=== PATIENT | male | born 1940 | race Two or more races ===

== ENCOUNTER 2021-07-22 18:54 | Emergency (ER) | payer MEDICARE, BC ==
--- NOTE | 2021-07-22 19:26 | EDM.PDOC ---
ED HPI GENERAL MEDICAL PROBLEM - General Chief Complaint: Upper Extremity Injury/Pain Stated Complaint: RR SHOULDER PAIN, FALL Time Seen by Provider: 07/22/21 19:14 Source of Information: Reports: Patient History Limitations: Reports: No Limitations - History of Present Illness INITIAL COMMENTS - FREE TEXT/NARRATIVE: HISTORY AND PHYSICAL: History of present illness: The patient is an 81-year-old male who presents to the emergency department for complaints of right shoulder pain after getting out of his pickup truck and grabbing a dog's leash the dog pulled him to the ground and yanked on his shoulder with the leash. The patient was able to get up with assistance from a neighbor. Patient denies any fever, chills, headache, change in vision, syncope or near syncope. Denies any chest pain, back pain, shortness of breath or cough. Denies any abdominal pain, nausea, vomiting, diarrhea, constipation or dysuria. Has not noted any blood in urine or stool. Patient has been eating and drinking appropriately. Review of systems: As per history of present illness and below otherwise all systems reviewed and negative. Past medical history: As per history of present illness and as reviewed below otherwise noncontributory. Surgical history: As per history of present illness and as reviewed below otherwise noncontributory. Social history: See social history for further information Family history: As per history of present illness and as reviewed below otherwise noncontributory. Physical exam: General: Well developed and well nourished. Alert and orientated x 3. Nontoxic in appearance and in no acute distress. Vital signs are stable and have been reviewed by me. Nursing notes were reviewed. HEENT: Atraumatic, normocephalic, pupils equal and reactive bilaterally, negative for conjunctival pallor or scleral icterus, mucous membranes moist, TMs normal bilaterally, throat clear, neck supple, nontender, trachea midline. No drooling or trismus noted. No meningeal signs. No hot potato voice noted. Lungs: Clear to auscultation bilaterally. No wheezes, rales, or rhonchi. Chest nontender. Normal work of breathing, no accessory muscles used. Heart: S1S2, regular rate and rhythm without overt murmur, gallops, or rubs. No JVD. No peripheral edema Abdomen: Soft, nondistended, nontender. Normoactive bowel sounds. Negative for masses or costovertebral tenderness. Skin: Intact, warm, dry. No lesions or rashes noted. Hematologic: No petechiae or purpra. Mucosa appropriate color and normal nail bed color and refill. Extremities: Right shoulder tender to movement. Moves all other extremities per self without difficulty or deficits, negative for cords or calf pain. Neurovascular unremarkable. Neuro: Awake, alert, oriented. Cranial nerves II through XII unremarkable. Cerebellum unremarkable. Motor and sensory unremarkable throughout. Exam nonfocal. Psychiatric: Mood and affect are appropriate. Normal thought process. Answering questions appropriately. Notes: *This patient was seen and evaluated during the 2019 SARS-CoV-2 novel coronavirus pandemic period. Community viral transmission is ongoing at time of this encounter and the emergency department is operating under pandemic response procedures. As above the patient is an 81-year-old male who was getting out of his truck when one of his dogs pulled. I have been ordered a shoulder x-ray. The patient has declined any pain medication. The patient's x-ray IMPRESSION: 1. No acute osseous injuries or abnormalities are noted. I discussed the findings with the patient and his and they are agreeable with discharging with Motrin for pain control at home. I explained to the patient he might need to follow-up with his primary care possible MRI and physical therapy. I have talked with the patient about today's findings, in addition to providing specific details for plan of care. Reassessment at the time of disposition demonstrates that the patient is in no acute distress. The patient is stable for discharge, counseling was provided and we discussed in great detail signs and symptoms that would prompt them to return to the Emergency Department. Medication, follow up and supportive care measures were reviewed and discussed. Voices understanding and is agreeable to plan of care. Denies any further questions or concerns at this time. Diagnostics: Right Shoulder x-ray Impression: Shoulder pain Plan: 1. You were evaluated today on an emergent basis. Your shoulder was evaluated for possible dislocation or fracture due to pull injury and fall. Your right shoulder x-ray showed no acute injuries or abnormalities. If you continue to have pain follow-up with your primary care as as possible you could need an MRI and possible physical therapy. 2. You can alternate Tylenol and ibuprofen as needed for pain and fever management. 3. We encourage you to follow up with your primary care provider and/or recommended specialist in the next few days for re-evaluation and further care/management. 4. If your symptoms should worsen, new symptoms develop or any of the signs and symptoms we discussed should arise please return to the emergency room or call 911 (if needed). Definitive disposition and diagnosis as appropriate pending reevaluation and review of above. right shoulder Pain Score (Numeric/FACES): 7 - Related Data Allergies Allergy/AdvReac Type Severity Reaction Status Date / Time Penicillins Allergy Hives Verified 07/22/21 19:17 Home Meds: Home Meds Ibuprofen mg PO ASDIRECTED PRN 07/22/21 [History] Simvastatin mg PO BEDTIME 07/22/21 [History] hydroCHLOROthiazide [Hydrochlorothiazide] mg PO DAILY 07/22/21 [History] lisinopriL [Lisinopril] mg PO DAILY 07/22/21 [History] metFORMIN [Glucophage XR] mg PO BID 07/22/21 [History] Review of Systems - Review of Systems Review Of Systems: Comprehensive ROS is negative, except as noted in HPI. ED EXAM, GENERAL - Physical Exam Exam: See Below (See dictation) Course - Vital Signs Last Recorded V/S: Last Vital Signs Temp 97.6 F 07/22/21 19:20 Pulse 58 L 07/22/21 19:20 Resp 18 07/22/21 19:20 BP 171/66 H 07/22/21 19:20 Pulse Ox 97 07/22/21 19:20 Departure - Departure Time of Disposition: 20:24 Disposition: Home, Self-Care 01 Condition: Good Clinical Impression: Shoulder pain, right Qualifiers: Chronicity: acute Qualified Code(s): M25.511 - Pain in right shoulder - Discharge Information *PRESCRIPTION DRUG MONITORING PROGRAM REVIEWED*: Not Applicable *COPY OF PRESCRIPTION DRUG MONITORING REPORT IN PATIENT DIANE: Not Applicable Instructions: Shoulder Pain Referrals: Rojas Hardwick MD [Primary Care Provider] - Forms: ED Department Discharge Additional Instructions: The following information is given to patients seen in the emergency department who are being discharged to home. This information is to outline your options for follow-up care. We provide all patients seen in our emergency department with a follow-up referral. The need for follow-up, as well as the timing and circumstances, are variable depending upon the specifics of your emergency department visit. If you don't have a primary care physician on staff, we will provide you with a referral. We always advise you to contact your personal physician following an emergency department visit to inform them of the circumstance of the visit and for follow-up with them and/or the need for any referrals to a consulting specialist. The emergency department will also refer you to a specialist when appropriate. This referral assures that you have the opportunity for follow-up care with a specialist. All of these measure are taken in an effort to provide you with optimal care, which includes your follow-up. Under all circumstances we always encourage you to contact your private physician who remains a resource for coordinating your care. When calling for follow-up care, please make the office aware that this follow-up is from your recent emergency room visit. If for any reason you are refused follow-up, please contact the [facility] Emergency Department at and asked to speak to the emergency department charge nurse. [facility] [address] [place] [id number] [facility] [address] [place] [address] Plan: 1. You were evaluated today on an emergent basis. Your shoulder was evaluated for possible dislocation or fracture due to pull injury and fall. Your right shoulder x-ray showed no acute injuries or abnormalities. If you continue to have pain follow-up with your primary care as as possible you could need an MRI and possible physical therapy. 2. You can alternate Tylenol and ibuprofen as needed for pain and fever management. 3. We encourage you to follow up with your primary care provider and/or recommended specialist in the next few days for re-evaluation and further care/management. 4. If your symptoms should worsen, new symptoms develop or any of the signs and symptoms we discussed should arise please return to the emergency room or call 911 (if needed). Sepsis Event Note (ED) - Focused Exam Vital Signs: Vital Signs Temp Pulse Resp BP Pulse Ox 07/22/21 19:20 97.6 F 58 L 18 171/66 H 97
--- NOTE | 2021-07-22 20:12 | CR ---
INDICATION: Pulled by a dog and fall onto right shoulder TECHNIQUE: Shoulder radiograph 3 views right COMPARISON: None FINDINGS: Bone: No acute fractures or aggressive bone lesions are identified. Moderate diffuse osteopenia is seen. 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 Soft tissue: Unremarkable. The visualized hemithorax is unremarkable in appearance. No radiopaque foreign bodies are seen. IMPRESSION: 1. No acute osseous injuries or abnormalities are noted. Dictated by Bentley Stoll MD @ 07/22/2021 8:11:41 PM Dictated by: Bentley Stoll MD @ 07/22/2021 20:11:46 (Electronically Signed)
== END 2021-07-22 20:31 | disposition home or self-care (01) ==
LOC: MW.ED 18:54
DX: M25.511 Pain in right shoulder (principal); Z88.0 Allergy status to penicillin; Z79.899 Other long term (current) drug therapy
CPT/HCPCS: 73030-26-RT; 73030-RT; 99283-25